=== PATIENT | female | born 1985 | race African-American/Black ===

== ENCOUNTER 2016-10-15 10:58 | Emergency (ER) | payer SELFPAY ==
[~2016-10-15] VITALS: Ht 160 cm; Wt 79.0 kg
[2016-10-15 11:35] VITALS: BP 131/68
== END 2016-10-16 08:22 | disposition left against medical advice (07) ==
LOC: ER 19:59
DX: Z53.21 Procedure and treatment not carried out due to patient leaving prior to being seen by health care provider (principal)